=== PATIENT | male | born 1980 | race African-American/Black ===

== ENCOUNTER 2020-09-19 14:33 | Inpatient (IN) | payer MEDICAID, OTHER ==
[~2020-09-19] VITALS: Ht 182.9 cm; Wt 95.3 kg
[2020-09-19] MEDS ORDERED: DIVA250T4 PO (14:47)
[2020-09-19] MEDS ORDERED: BUPR100T13 PO (14:47)
[2020-09-19] MEDS ORDERED: ONDANSETRON HCL 4MG/2ML INJ IV STA (15:08)
[2020-09-19] MEDS ORDERED: MORPHINE SULFATE 4 MG/ML CPJ (NOT FOR IM USE) IV STA (15:08)
[2020-09-19] MEDS ORDERED: SODIUM CHLORIDE 0.9% 1,000 ML IV ONE (15:15)
[2020-09-19 15:29] LABS: BASOPHILS % 0.8 % (0.0-2.0); EOSINOPHILS % 1.9 % (0.0-5.0); HEMATOCRIT. 42.9 % (42.0-52.0); HEMOGLOBIN. 14.4 g/dL (14.0-18.0); LYMPHOCYTES % 24.4 % (20.0-50.0); MEAN CORPUSCULAR HEMOGLOBIN 27.9 pg (28.0-32.0); MEAN CORPUSCULAR VOLUME 82.9 fL (80.0-94.0); MONOCYTES % 13.1 % (2.0-8.0); NEUTROPHILS % 59.8 % (40.0-76.0); PLATELET 240 x1000/uL (130-400); RED BLOOD CELL COUNT 5.18 mill/uL (4.7-6.1); RED CELL DISTRIBUTION WIDTH 14.2 % (11.6-14.6)
[2020-09-19 15:39] LABS: PROTHROMBIN TIME 10.3 sec (9.6-11.0)
[2020-09-19 15:40] LABS: CHLORIDE 110 mEq/L (98-107)
[2020-09-19 15:44] LABS: ETHANOL BLOOD < 10 mg/dL
[2020-09-19 16:28] LABS: CLARITY URINE CLEAR (CLEAR); COLOR URINE YELLOW (YELLOW); KETONES URINE NEGATIVE (NEGATIVE); LEUKOCYTE ESTERASE URINE NEGATIVE (NEGATIVE); NITRITE URINE NEGATIVE (NEGATIVE); OCCULT BLOOD URINE NEGATIVE (NEGATIVE); PH URINE 7.5 (4.5-8.0); PROTEIN URINE NEGATIVE (NEGATIVE)
[2020-09-19 16:42] LABS: *AMPHETAMINES SCREEN URINE NEGATIVE (NEGATIVE); *BARBITURATES SCREEN URINE NEGATIVE (NEGATIVE); CANNABINOID URINE SCREEN NEGATIVE (NEGATIVE); METHADONE URINE SCREEN NEGATIVE (NEGATIVE); PHENCYCLIDINE URINE SCREEN NEGATIVE (NEGATIVE)
[2020-09-19 16:43] LABS: *BENZODIAZEPINES SCREEN URINE NEGATIVE (NEGATIVE); *COCAINE SCREEN URINE NEGATIVE (NEGATIVE)
[2020-09-19 16:45] LABS: OPIATES URINE SCREEN NEGATIVE (NEGATIVE)
[2020-09-19] MEDS ORDERED: AZITHROMYCIN 500 MG TABLET PO ONE (18:00)
[2020-09-19] MEDS ORDERED: MORPHINE SULFATE 4 MG/ML CPJ (NOT FOR IM USE) IV ONE (18:00)
[2020-09-19] MEDS ORDERED: CEFTRIAXONE 1 G PREMIX 50 ML IV ONE (18:00)
[2020-09-19 22:30] VITALS: BP 153/75
[2020-09-19] MEDS ORDERED: IOHEXOL-350 100 ML BOTTLE ONE (23:08)
[2020-09-19] MEDS ORDERED: HYDROCODONE/ACETAMINOPHEN 10/325MG TABLET PO PRN (23:30)
[2020-09-19] MEDS ORDERED: ONDANSETRON HCL 4MG/2ML INJ IV PRN (23:30)
[2020-09-20] VITALS: BP 147/95
[2020-09-20 04:00] VITALS: BP 130/79
[2020-09-20] MEDS: DIVALPROEX SODIUM 250MG DR TABLET PO SCH ×2 (05:56→13:32)
[2020-09-20 06:00] LABS: HEMATOCRIT 43.2 % (42.0-52.0); HEMOGLOBIN 14.2 g/dL (14.0-18.0); MEAN CORPUSCULAR HEMOGLOBIN 27.6 pg (28.0-32.0); MEAN CORPUSCULAR VOLUME 84.2 fL (80.0-94.0); PLATELET 234 x1000/uL (130-400); RED BLOOD CELL COUNT 5.13 mill/uL (4.7-6.1); RED CELL DISTRIBUTION WIDTH 14.2 % (11.6-14.6)
[2020-09-20 06:29] LABS: CHLORIDE 105 mEq/L (98-107)
[2020-09-20] MEDS ORDERED: OMEPRAZOLE 20MG CAPSULE EXTENDED RELEASE PO SCH (06:45)
[2020-09-20 08:00] VITALS: BP 121/74
[2020-09-20] MEDS ORDERED: BUPROPION HCL 150MG TABLET XL 24HR PO SCH (09:00)
[2020-09-20] MEDS ORDERED: PANTOPRAZOLE SODIUM 40 MG/VIAL IV SCH (09:00)
[2020-09-20 12:00] VITALS: BP 121/80
[2020-09-20 14:02] VITALS: BP 121/80
== END 2020-09-20 14:48 | disposition home or self-care (01) | DRG 203 ==
LOC: ER 14:33 → EDBEDREQ 18:00 → 5WST 20:46 → EDBEDREQ 20:49 → EDBEDREQTM 20:49 → ENRESERV 21:18
PROVIDERS: ADMIT Internal Medicine; ATTEND Internal Medicine
DX: M94.0 Chondrocostal junction syndrome [Tietze] (principal); J90 Pleural effusion, not elsewhere classified; E87.8 Other disorders of electrolyte and fluid balance, not elsewhere classified; R03.0 Elevated blood-pressure reading, without diagnosis of hypertension; F31.9 Bipolar disorder, unspecified; R10.9 Unspecified abdominal pain; R35.8 Other polyuria
CPT/HCPCS: 36415; 71045; 74177; 76700; 80048; 80053; 80305; 80320; 81003; 83605; 83880; 84484; 85025; 85027; 86850; 86900; 93005; 99285; C9113; J0696; J2270; J2405; J7030; Q9967; G0480

== ENCOUNTER 2024-04-16 18:31 | Inpatient (IN) | payer MEDICAID, OTHER ==
[~2024-04-16] VITALS: Ht 170.2 cm; Wt 81.6 kg
[~2024-04-16 18:31] MED LIST: BUPR100T13 PO; DIVA250T4 PO
[2024-04-16 19:55] LABS: MEAN CORPUSCULAR HEMOGLOBIN 19.6 pg (28.0-32.0); MEAN CORPUSCULAR HGB CONC 29.6 g/dL (31.0-37.0); MEAN CORPUSCULAR VOLUME 66.2 fL (80.0-94.0); MEAN PLATELET VOLUME 7.6 fl (7.4-10.4); PLATELET 624 x1000/uL (130-400); RED BLOOD CELL COUNT 3.05 mill/uL (4.7-6.1); RED CELL DISTRIBUTION WIDTH 17.2 % (11.6-14.6)
[2024-04-16 19:59] LABS: CHLORIDE 108 mEq/L (98-107); POTASSIUM 3.7 mEq/L (3.5-5.1); SODIUM 141 mEq/L (136-145)
[2024-04-16 20:00] LABS: CARBON DIOXIDE 27 mEq/L (21-32)
[2024-04-16 20:01] LABS: CALCIUM 9.1 mg/dL (8.7-10.4)
[2024-04-16 20:02] LABS: DIFFERENTIAL COMMENT 1; HEMATOCRIT. 20.2 % (42.0-52.0)
[2024-04-16 20:05] LABS: GLUCOSE 84 mg/dL (70-105); UREA NITROGEN BLOOD 15 mg/dL (9-23)
[2024-04-16 20:23] LABS: ANISOCYTOSIS 1+; HYPOCHROMASIA 2+; MICROCYTOSIS 3+; PLATELET ESTIMATE INCREASED
[2024-04-16] MEDS ORDERED: CLONIDINE 0.1MG TABLET PO PRN (23:15)
[2024-04-16] MEDS ORDERED: ZOLPIDEM TARTRATE 5MG TABLET PO PRN (23:15)
[2024-04-16] MEDS ORDERED: ONDANSETRON HCL 4MG/2ML INJ IV PRN (23:15)
[2024-04-16] MEDS ORDERED: ACETAMINOPHEN 325MG TABLET PO PRN (23:15)
[2024-04-17] VITALS (8 sets, daily range): BP systolic 92–110; BP diastolic 67–72; PULSE 67–96; RESP 17–20; TEMP 36.3918–36.72516; O2SAT 100
[2024-04-17] MEDS: SODIUM CHLORIDE 0.9% 1,000 ML IV SCH (00:49)
[2024-04-17 03:47] LABS: CHLORIDE 109 mEq/L (98-107); POTASSIUM 3.5 mEq/L (3.5-5.1); SODIUM 142 mEq/L (136-145)
[2024-04-17 03:48] LABS: CARBON DIOXIDE 27 mEq/L (21-32)
[2024-04-17 03:53] LABS: CREATININE 0.9 mg/dL (0.6-1.3); GLUCOSE 103 mg/dL (70-105); IRON 28 ug/dL (65-175); UREA NITROGEN BLOOD 14 mg/dL (9-23)
[2024-04-17 03:55] LABS: TOTAL IRON BINDING CAPACITY 328 ug/dl (250-425)
[2024-04-17 04:10] LABS: FERRITIN 14 ng/mL (22-322)
[2024-04-17 04:11] LABS: FOLIC ACID (FOLATE) SERUM 5.06 ng/mL (>5.38); VITAMIN B12 SERUM 812 pg/mL (211-911)
[2024-04-17 04:25] LABS: HEMATOCRIT. 21.2 % (42.0-52.0); MEAN CORPUSCULAR HEMOGLOBIN 21.5 pg (28.0-32.0); MEAN CORPUSCULAR HGB CONC 31.2 g/dL (31.0-37.0); MEAN CORPUSCULAR VOLUME 68.9 fL (80.0-94.0); MEAN PLATELET VOLUME 7.7 fl (7.4-10.4); PLATELET 519 x1000/uL (130-400); RED BLOOD CELL COUNT 3.08 mill/uL (4.7-6.1); RED CELL DISTRIBUTION WIDTH 18.7 % (11.6-14.6); WHITE BLOOD COUNT 3.8 x1000/uL (4.5-11.0)
[2024-04-17 04:56] LABS: DIFFERENTIAL COMMENT 1; HEMOGLOBIN. 6.6 g/dL (14.0-18.0)
[2024-04-17 07:32] LABS: ANISOCYTOSIS 2+; HYPOCHROMASIA 3+; PLATELET ESTIMATE INCREASED
[2024-04-17 07:33] LABS: MICROCYTOSIS 2+
[2024-04-17] MEDS: PANTOPRAZOLE SODIUM 40 MG/VIAL IV SCH (09:19)
[2024-04-17 21:40] LABS: HEMATOCRIT. 25.6 % (42.0-52.0); HEMOGLOBIN. 7.6 g/dL (14.0-18.0); MEAN CORPUSCULAR HEMOGLOBIN 21.4 pg (28.0-32.0); MEAN CORPUSCULAR HGB CONC 29.8 g/dL (31.0-37.0); MEAN CORPUSCULAR VOLUME 71.9 fL (80.0-94.0); PLATELET 474 x1000/uL (130-400); RED BLOOD CELL COUNT 3.56 mill/uL (4.7-6.1)
[2024-04-17 21:47] LABS: DIFFERENTIAL COMMENT 1
[2024-04-17 22:44] LABS: PLATELET ESTIMATE NORMAL
[2024-04-17 22:45] LABS: ANISOCYTOSIS 2+; GIANT PLATELETS 1+; HYPOCHROMASIA 2+; MICROCYTOSIS 2+
[2024-04-18] VITALS: BP 113/79; PULSE 70; RESP 18; TEMP 37.00296; O2SAT 100
[2024-04-18 03:19] LABS: CARBON DIOXIDE 24 mEq/L (21-32); CHLORIDE 113 mEq/L (98-107); POTASSIUM 3.6 mEq/L (3.5-5.1); SODIUM 143 mEq/L (136-145)
[2024-04-18 03:20] LABS: CALCIUM 8.8 mg/dL (8.7-10.4)
[2024-04-18 03:24] LABS: CREATININE 0.8 mg/dL (0.6-1.3); GLUCOSE 89 mg/dL (70-105)
[2024-04-18 03:25] LABS: UREA NITROGEN BLOOD 8 mg/dL (9-23)
[2024-04-18 03:26] LABS: ALANINE AMINOTRANSFERASE < 7 IU/L (10-49); ALBUMIN 3.6 g/dL (3.2-4.8); ASPARTATE AMINOTRANSFERASE 12 IU/L (<34); LACTATE DEHYDROGENASE 194 IU/L (120-246)
[2024-04-18 03:27] LABS: BILIRUBIN TOTAL 0.7 mg/dL (0.1-1.0); PROTEIN TOTAL 6.3 g/dL (6.0-8.3)
[2024-04-18 03:38] LABS: HEMATOCRIT. 24.4 % (42.0-52.0); HEMOGLOBIN. 7.5 g/dL (14.0-18.0); MEAN CORPUSCULAR HEMOGLOBIN 21.7 pg (28.0-32.0); MEAN CORPUSCULAR HGB CONC 30.7 g/dL (31.0-37.0); MEAN CORPUSCULAR VOLUME 70.7 fL (80.0-94.0); PLATELET 462 x1000/uL (130-400); RED BLOOD CELL COUNT 3.45 mill/uL (4.7-6.1); RED CELL DISTRIBUTION WIDTH 20.7 % (11.6-14.6); WHITE BLOOD COUNT 5.8 x1000/uL (4.5-11.0)
[2024-04-18 03:56] LABS: DIFFERENTIAL COMMENT 1
[2024-04-18 04:00] VITALS: BP 112/63; PULSE 71; RESP 17; TEMP 36.61404; O2SAT 100
[2024-04-18 04:47] LABS: ANISOCYTOSIS 2+; HYPOCHROMASIA 1+; MICROCYTOSIS 1+; PLATELET ESTIMATE NORMAL
[2024-04-18 08:00] VITALS: BP 113/73; PULSE 76; RESP 19; TEMP 36.61404; O2SAT 99
[2024-04-18] MEDS ORDERED: DEXT 5%/0.45% NACL 1000ML 1,000 ML IV SCH (08:15)
[2024-04-18] MEDS: DEXT 5%/0.2% NACL 1,000 ML IV SCH (08:15)
[2024-04-18 12:00] VITALS: BP 111/69; PULSE 76; RESP 18; TEMP 36.55848; O2SAT 100
[2024-04-18 15:00] VITALS: BP 110/73; PULSE 73; RESP 20; TEMP 36.50292; O2SAT 99
[2024-04-18] MEDS ORDERED: LABETALOL 5MG/ML 4ML INJ IV PRN (17:15)
[2024-04-18] MEDS ORDERED: ONDANSETRON HCL 4MG/2ML INJ IV PRN (17:15)
[2024-04-18] MEDS ORDERED: HYDROMORPHONE HCL/PF 2MG/ML INJ IV PRN (17:15)
[2024-04-18] MEDS ORDERED: MEPERIDINE HCL/PF 25MG/ML CPJ IV PRN (17:15)
[2024-04-18 20:00] VITALS: BP 110/72; PULSE 68; RESP 19; TEMP 36.6696; O2SAT 100
[2024-04-19] VITALS: BP 106/65; PULSE 72; RESP 19; TEMP 36.78072; O2SAT 100
[2024-04-19 08:00] VITALS: BP 129/90; PULSE 103; RESP 19; TEMP 36.3918; O2SAT 100
[2024-04-19] MEDS: FOLIC ACID 1MG TABLET PO SCH (09:42)
[2024-04-19 12:00] VITALS: BP 105/75; PULSE 78; RESP 18; TEMP 36.16956; O2SAT 96
[2024-04-19 12:03] LABS: HEMATOCRIT. 25.7 % (42.0-52.0); HEMOGLOBIN. 7.7 g/dL (14.0-18.0); MEAN CORPUSCULAR HEMOGLOBIN 21.6 pg (28.0-32.0); MEAN PLATELET VOLUME 7.4 fl (7.4-10.4); PLATELET 403 x1000/uL (130-400); RED BLOOD CELL COUNT 3.58 mill/uL (4.7-6.1); RED CELL DISTRIBUTION WIDTH 20.4 % (11.6-14.6); WHITE BLOOD COUNT 5.2 x1000/uL (4.5-11.0)
[2024-04-19 12:22] LABS: CARBON DIOXIDE 23 mEq/L (21-32); CHLORIDE 110 mEq/L (98-107); POTASSIUM 3.7 mEq/L (3.5-5.1); SODIUM 140 mEq/L (136-145)
[2024-04-19 12:23] LABS: CALCIUM 8.9 mg/dL (8.7-10.4)
[2024-04-19 12:28] LABS: CREATININE 0.9 mg/dL (0.6-1.3); GLUCOSE 91 mg/dL (70-105); UREA NITROGEN BLOOD 8 mg/dL (9-23)
[2024-04-19 12:49] LABS: DIFFERENTIAL COMMENT 1
[2024-04-19] MEDS ORDERED: IOHEXOL-300 100 ML BOTTLE ONE (13:59)
[2024-04-19] MEDS: SODIUM CHLORIDE 0.9% 500 ML IV NR (15:48)
[2024-04-19 16:00] VITALS: BP 112/79; PULSE 77; RESP 18; TEMP 36.28068; O2SAT 97
[2024-04-19 17:46] LABS: ANISOCYTOSIS 2+; NUCLEATED RED BLOOD CELLS 1 /100 WBC; PLATELET ESTIMATE SLIGHTLY INCREASED
[2024-04-19 17:47] LABS: MICROCYTOSIS 1+
[2024-04-19] MEDS: SORBITOL 70% SOLN 30ML PO SCH (18:05)
[2024-04-19 20:00] VITALS: BP 111/74; PULSE 88; RESP 20; TEMP 36.72516; O2SAT 100
[2024-04-20] VITALS: BP 103/59; PULSE 84; RESP 20; TEMP 37.2252; O2SAT 97
[2024-04-20] MEDS: DEXT 5%/0.2% NACL 1,000 ML IV SCH (07:30)
[2024-04-20 08:00] VITALS: BP 114/72; PULSE 88; RESP 18; TEMP 37.11408; O2SAT 99
[2024-04-20 08:11] LABS: HEMATOCRIT. 27.3 % (42.0-52.0); HEMOGLOBIN. 8.2 g/dL (14.0-18.0); MEAN CORPUSCULAR HGB CONC 29.9 g/dL (31.0-37.0); MEAN CORPUSCULAR VOLUME 70.1 fL (80.0-94.0); MEAN PLATELET VOLUME 7.8 fl (7.4-10.4); PLATELET 443 x1000/uL (130-400); RED CELL DISTRIBUTION WIDTH 20.8 % (11.6-14.6)
[2024-04-20 08:20] LABS: CHLORIDE 112 mEq/L (98-107); DIFFERENTIAL COMMENT 1; POTASSIUM 3.9 mEq/L (3.5-5.1); SODIUM 143 mEq/L (136-145)
[2024-04-20 08:21] LABS: CALCIUM 9.3 mg/dL (8.7-10.4); CARBON DIOXIDE 24 mEq/L (21-32)
[2024-04-20 08:26] LABS: CREATININE 1.1 mg/dL (0.6-1.3); GLUCOSE 100 mg/dL (70-105); UREA NITROGEN BLOOD 11 mg/dL (9-23)
[2024-04-20 08:32] LABS: PROTHROMBIN TIME 11.5 sec (9.6-11.0)
[2024-04-20 09:55] LABS: PLATELET ESTIMATE SLIGHTLY INCREASED
[2024-04-20 09:56] LABS: ANISOCYTOSIS 3+; HYPOCHROMASIA 2+; MICROCYTOSIS 2+
[2024-04-20 09:57] LABS: TEAR DROP CELLS FEW
[2024-04-20] MEDS ORDERED: PROPOFOL 200MG/20ML VIAL IV ONE (11:38)
[2024-04-20 12:00] VITALS: BP 120/78; PULSE 85; RESP 17; TEMP 36.6696; O2SAT 98
[2024-04-20] MEDS ORDERED: FERR325T6 MT (14:33)
[2024-04-20] MEDS ORDERED: PROT40 MT (14:33)
[2024-04-20 16:00] VITALS: BP 111/70; PULSE 105; RESP 18; TEMP 37.11408; O2SAT 99
[2024-04-20 16:31] VITALS: BP 111/70; PULSE 105; TEMP 98; O2SAT 99
== END 2024-04-20 19:45 | disposition home or self-care (01) | DRG 663 ==
LOC: ER 18:31 → EDBEDREQ 20:18 → MICUSO 20:37 → EDBEDREQ 20:39 → EDBEDREQTM 20:39 → EDBEDREQSVC 04-17 01:11 → 6EST 04-17 14:56
PROVIDERS: ADMIT Internal Medicine; ATTEND Internal Medicine
PROC: 30233N1 Transfusion of Nonautologous Red Blood Cells into Peripheral Vein, Percutaneous Approach (ICD-10-PCS; 2024-04-16)
PROC: 0DB78ZX Excision of Stomach, Pylorus, Via Natural or Artificial Opening Endoscopic, Diagnostic (ICD-10-PCS; principal; 2024-04-18)
PROC: 0DJD8ZZ Inspection of Lower Intestinal Tract, Via Natural or Artificial Opening Endoscopic (ICD-10-PCS; 2024-04-20)
DX: D50.9 Iron deficiency anemia, unspecified (principal); I95.9 Hypotension, unspecified; D75.839 Thrombocytosis, unspecified; F31.9 Bipolar disorder, unspecified; K44.9 Diaphragmatic hernia without obstruction or gangrene; E53.8 Deficiency of other specified B group vitamins; K64.8 Other hemorrhoids; K29.70 Gastritis, unspecified, without bleeding
CPT/HCPCS: 36415; 71270; 74178; 80048; 80053; 82270; 82607; 82728; 82746; 83540; 83550; 83615; 85025; 85044; 86850; 86900; 86920; 88305; 88312; 88313; 93970; 99291; J2470; J2704; P9016; Q9967